=== PATIENT | male | born 1960 | race Two or more races ===

== ENCOUNTER 2025-01-31 19:22 | Inpatient (IN) | payer BC, OTHER ==
[~2025-01-31] VITALS: Ht 167.6 cm; Wt 91.4 kg
[2025-01-31 20:17] LABS: Hematocrit 38.9 % (41.0-53.0); Hemoglobin 13.5 g/dL (13.5-17.5); Mean Corpuscular Hemoglobin 31.0 pg (28.0-32.0); Mean Corpuscular Volume 89.1 fL (80.0-100.0); Nucleated Red Blood Cells % 0.1 %
--- NOTE | 2025-01-31 20:28 | ED.PDOC ---
GI ASSESSMENT HPI Comments 64-year-old male who came to ER for GI bleed. Patient transferred here from [facility], coming in for rectal bleeding, dark red blood 9 times since this morning. Noted lower abdominal pain. Denies any nausea or vomiting. Denies any history of abdominal surgeries. Patient diagnosed with bleeding diverticulitis, and was transferred here for further evaluation and management Chief Complaint: GI Bleed Time Seen by MD: 20:27 Reviewed Notes: Nurses Notes Allergies: Coded Allergies: Penicillins (Verified Allergy, Unknown, 01/31/25) Information Source: Patient Mode of Arrival: EMS Timing: Hours Duration: Intermittent Prehospital treatment: None Quality: Aching Vomitus: None Stool: Blood Streaked Severity: Moderate Recent: None Recent Hx of: None Pain Location: Suprapubic Associated sign and symptoms: Hematochezia, Abdominal Pain Past Medical History PAST MEDICAL HISTORY: Denies Surgical History (Other): Nasal Surgery Family History Family History: Reviewed,noncontributory to illness Social History Smoker: Non-Smoker Alcohol: Denies ETOH Use Drugs: Denies Drug Use Lives In: Home Constitutional: denies: chills, diaphoresis, fatigue, fever, malaise, sweats, weakness, others EENTM: denies: blurred vision, double vision, ear bleeding, ear discharge, ear drainage, ear pain, ear ringing, eye pain, eye redness, hearing loss, mouth pain, mouth swelling, nasal discharge, nose bleeding, nose congestion, nose pain, photophobia, tearing, throat pain, throat swelling, voice changes, others Respiratory: denies: cough, hemoptysis, orthopnea, SOB at rest, shortness of breath, SOB with excertion, stridor, wheezing, others Cardiovascular: denies: chest pain, dizzy spells, diaphoresis, Dyspnea on exertion, edema, irregular heart beat, left arm pain, lightheadedness, palpitations, PND, syncope, others Gastrointestinal: reports: abdominal pain, blood streaked bowels, rectal bl eeding; denies: abdomen distended, constipated, diarrhea, dysphagia, difficulty swallowing, hematemesis, melena, nausea, poor appetite, poor fluid intake, rectal pain, vomiting, others Genitourinary: denies: burning, dysuria, flank pain, frequency, hematuria, incontinence, penile discharge, penile sore, pain, testicle pain, testicle swelling, urgency, others Neurological: denies: dizziness, fainting, headache, left sided numbness, left sided weakness, numbness, paresthesia, pre-existing deficit, right sided numbness, right sided weakness, seizure, speech problems, tingling, tremors, weakness, others Musculoskeletal: denies: back pain, gout, joint pain, joint swelling, muscle pain, muscle stiffness, neck pain, others Integumetry: denies: bruises, change in color, change in hair/nails, dryness, laceration, lesions, lumps, rash, wounds, others Allergic/Immunocompromised: denies: Difficulty Healing, Frequent Infections, Hives, Itching, others Hematologic/Lymphatic: denies: anemia, blood clots, easy bleeding, easy bruising, swollen glands, others Endocrine: denies: excessive hunger, excessive sweating, excessive thirst, excessive urination, flushing, intolerance to cold, intolerance to heat, unexplained weight gain, unexplained weight loss, others Psychiatric: denies: anxiety, bipolar disorder, depression, hopeless, panic disorder, schizophrenia, sleepless, suicidal, others Physical Exam General Appearance: No Apparent Distress, Normal HEENT: Normal ENT Inspection, Pharynx Normal, TMs Normal Neck: Full Range of Motion, Non-Tender, Normal, Normal Inspection Respiratory: Chest Non-Tender, Lungs Clear, No Accessory Muscle Use, No Respiratory Distress, Normal Breath Sounds Cardiovascular: No Edema, No JVD, No Murmur, No Gallop, Normal Peripheral Pulses, Regular Rate/Rhythm Breast Exam: Deferred Gastrointestinal: No Organomegaly, Non Tender, No Pulsatile Mass, Normal Bowel Sounds, Soft Genitalia: Deferred Pelvic: Deferred Rectal: Deferred Extremities: No calf tenderness, Normal capillary refill, Normal inspection, Normal range of motion, Non-tender, No pedal edema Musculoskeletal : Apperance: Normal Neurologic: Alert, temperer II-XII nml as Tested, No Motor Deficits, Normal Affect, Normal Mood, No Sensory Deficits Cerebellar Function: Normal Reflexes: Normal Skin: Dry, Normal Color, Warm Lymphatic: No Adenopathy Was a procedure done? Was a procedure done?: No GI differential Dx Differential Diagnosis: Diverticular disease, Gastritis/PUD, Gastroenteritis, GI hemorrhage, Inflammatory BD, Ischemic Bowel, Anemia X-Ray, Labs, Meds, VS Vital Signs Date Time Temp Pulse Resp B/P (MAP) Pulse Ox O2 Delivery O2 Flow Rate FiO2 01/31/25 21:05 Room Air* 0 21 01/31/25 21:05 98.2 69 19 107/76 (86) 95 98.2 01/31/25 19:22 98.7 82 18 125/80 96 98.7 Lab Test 01/31/25 20:06 Range/Units White Blood Count 6.4 4.4-10.8 10^3/uL Red Blood Count 4.36 L 4.5-5.90 10^6/uL Hemoglobin 13.5 13.5-17.5 g/dL Hematocrit 38.9 L 41.0-53.0 % Mean Corpuscular Volume 89.1 80.0-100.0 fL Mean Corpuscular Hemoglobin 31.0 28.0-32.0 pg Mean Corpuscular Hemoglobin Concent 34.8 32.0-36.0 g/dL Red Cell Distribution Width 12.7 11.8-14.3 % Platelet Count 271 140-450 10^3/uL Mean Platelet Volume 6.8 L 6.9-10.8 fL Neutrophils (%) (Auto) 72.0 37.0-80.0 % Lymphocytes (%) (Auto) 16.9 10.0-50.0 % Monocytes (%) (Auto) 7.1 0.0-12.0 % Eosinophils (%) (Auto) 3.2 0.0-7.0 % Basophils (%) (Auto) 0.8 0.0-2.0 % Neutrophils # (Auto) 4.6 1.6-8.6 10 ^3/uL Lymphocytes # (Auto) 1.1 0.4-5.4 10 ^3/uL Monocytes # (Auto) 0.5 0-1.3 10 ^3/uL Eosinophils # (Auto) 0.2 0-0.8 10 ^3/uL Basophils # (Auto) 0 0-0.2 10 ^3/uL Nucleated Red Blood Cells 0.1 % Prothrombin Time 10.8 9.3-11.8 sec Prothrombin Time INR 1.02 0.9-1.15 Activated Partial Thromboplast Time 25.9 24.5-34.5 SEC Sodium Level 140 136-145 mmol/L Potassium Level 4.2 3.5-5.1 mmol/L Chloride Level 106 98-107 mmol/L Carbon Dioxide Level 26 20-31 mmol/L Anion Gap 8 5-15 Blood Urea Nitrogen 14 9-23 mg/dL Creatinine 0.87 0.700-1.30 mg/dL Glomerular Filtration Rate Calc 98 >90 mL/min BUN/Creatinine Ratio 16.1 10.0-20.0 Serum Glucose 92 74-106 mg/dL Calcium Level 9.2 8.7-10.4 mg/dL Total Bilirubin 0.9 0.2-1.0 mg/dL Aspartate Amino Transferase (AST) 27 13-40 U/L Alanine Aminotransferase (ALT) 35 7-40 U/L Alkaline Phosphatase 70 46-116 U/L Total Protein 6.6 5.7-8.2 g/dL Albumin 4.1 3.2-4.8 g/dL Lipase 28 12-53 U/L Current Medications Medications (Trade) Dose Ordered Sig/Gadiel Route Start Time Stop Time Status Last Admin Sodium Chloride 1,000 ml @ 1,000 mls/hr Q1H ONCE IV 01/31/25 19:45 01/31/25 20:44 DC 01/31/25 22:00 Time of 1ST Reevaluation: 20:23 Reevaluation 1ST: Unchanged Patient Education/Counseling: Diagnosis, Treatment Family Education/Counseling: No Family Present SEPSIS Sepsis Screen Date sepsis recognized/suspect: Jan 31, 2025 Time Sepsis recognized/suspect: 1921 Recent Procedure: No On Antibiotic Therapy: No Respiratory Rate >20: No Heart Rate >90: No Temp<36 C (96.8 F) or >38.3 C: No SBP <90 or MAP <65 mmHG: No New Acute Mental Status Change: No Is the patient on CPAP, BIPAP,: No Physician Orders Heplock Iv (01/31/25 19:45) Ct Ab Pel Wo Con-No Oral Or Iv (01/31/25 19:47) Vital Signs Date Time Temp Pulse Resp B/P (MAP) Pulse Ox O2 Delivery O2 Flow Rate FiO2 01/31/25 21:05 Room Air* 0 21 01/31/25 21:05 98.2 69 19 107/76 (86) 95 98.2 01/31/25 19:22 98.7 82 18 125/80 96 98.7 Laboratory Tests Test 01/31/25 20:06 White Blood Count 6.4 10^3/uL (4.4-10.8) Medications Medications Dose Ordered Sig/Gadiel Route Start Time Stop Time Status Last Admin Dose Admin Sodium Chloride 1,000 ml @ 1,000 mls/hr Q1H ONCE IV 01/31/25 19:45 01/31/25 20:44 DC 01/31/25 22:00 Departure 1 Departure Time of Disposition: 22:57 Impression: Primary Impression: Lower GI bleed Disposition: ADMITTED INPATIENT Admit to: Med Surg Condition: Guarded Discharged With: Self Comments 64-year-old male transferred from [facility] for lower GI bleed. Patient has had some steady bleeding for the last couple of days. His initial H and H look okay. He does have a history of diverticulosis and this may be the cause of the bleeding. CT scan and lab work are negative for diverticulitis. Patient will need admission for lower GI bleed and supportive care and further workup and possible GI consultation. Critical Care Note Critical Care Time?: Yes (35 min-critical care time only) Critical care comment: Total critical care time: Approximately 36 minutes Due to a high probability of clinically significant, life threatening deterior ation, the patient required my highest level of preparedness to intervene emergently and I personally spent this critical care time directly and personally managing the patient. This critical care time included obtaining a history; examining the patient; pulse oximetry; ordering and review of studies; arranging urgent treatment with development of a management plan; evaluation of patient's response to treatment; frequent reassessment; and, discussions with other providers. This critical care time was performed to assess and manage the high probability of imminent, life-threatening deterioration that could result in multi-organ failure. It was exclusive of separately billable procedures and treating other patients. Stability Stability form required: No Heart Score Heart Score: Heart Score Response (Comments) Value History N/A 0 EKG N/A 0 Age N/A 0 Risk Factors N/A 0 Troponin N/A 0 Total 0 I personally scribed for KATH SHULTZ MD ([email or web address]) on 01/31/25 at 20:28. Electronically submitted by Len Sparrow ([email or web address]). KATH SHULTZ MD Jan 31, 2025 20:28
[2025-01-31 20:32] LABS: INR 1.02 (0.9-1.15); Partial Thromboplastin Time 25.9 SEC (24.5-34.5); Prothrombin Time 10.8 sec (9.3-11.8)
[2025-01-31 20:35] LABS: Alanine Aminotransferase 35 U/L (7-40); Albumin 4.1 g/dL (3.2-4.8); Alkaline Phosphatase 70 U/L (46-116); Anion Gap 8 (5-15); BUN/Creatinine Ratio 16.1 (10.0-20.0); Blood Urea Nitrogen 14 mg/dL (9-23); Calcium 9.2 mg/dL (8.7-10.4); Carbon Dioxide 26 mmol/L (20-31); Chloride 106 mmol/L (98-107); Glucose 92 mg/dL (74-106); Lipase 28 U/L (12-53); Potassium 4.2 mmol/L (3.5-5.1); Sodium 140 mmol/L (136-145); Total Protein 6.6 g/dL (5.7-8.2)
[2025-01-31 20:36] LABS: Bilirubin, Total 0.9 mg/dL (0.2-1.0)
[2025-01-31] MEDS: SODIUM CHLORIDE 0.9% 1,000 ML IV ONE (22:00)
--- NOTE | 2025-01-31 22:46 | DVH ---
Exam: CT CT AB PEL WO CON-NO ORAL OR IV History: abd pain, GI bleed Comparison Study: None TECHNIQUE: Multidetector CT of the abdomen was performed from lung bases to pubic symphysis. Imaging was performed without IV contrast. Axial, coronal and sagittal multiplanar reformats were obtained fr om the axial data set by the technologist. Radiation Dose Information: CT Dose: CTDI volume is 16.9 mGy. Dose-length product is 1025.6 mGy*cm FINDINGS: Evaluation of solid organs is limited due to lack of intravenous contrast use. Findings: Lung Bases: No acute or significant lung base finding. Normal heart size. No pleural or pericardial effusion. Liver: The liver is normal in size. No focal lesions. Gallbladder and Biliary Tree: Unremarkable Spleen: Unremarkable Pancreas: The pancreas is grossly normal in appearance. Adrenal Glands: Unremarkable Kidneys: Bilateral renal cysts Bladder: Contrast filled bladder Bowel: The stomach is grossly normal in appearance. Small bowel and colon are normal in caliber and d istribution. The appendix is not visualized; however, no secondary findings of acute appendicitis id entified. Ascites: Absent Lymphadenopathy: No mesenteric, retroperitoneal or periportal lymphadenopathy. Abdominal Wall and Mesentery: Unremarkable. Vasculature: The visualized abdominal aorta is normal in size and caliber. Evaluation of abdominal a nd pelvic vessels is limited due to lack of intravenous contrast. Pelvic Organs: Prostate measures 5.4 by 5.2 cm and is partially calcified Musculoskeletal: No aggressive focal bony lesions, acute fractures or dislocation. Soft tissues: Unremarkable IMPRESSION: 1. Bilateral renal cysts 2. Contrast filled bladder Radiation optimization: All CT scans at this facility use at least one of these dose optimization jamel hniques: automated exposure control mA and/or kV adjustment per patient size (includes targeted exam s where dose is matched to clinical indication) or iterative reconstruction.
[2025-02-01] VITALS (7 sets, daily range): BP systolic 104–116; BP diastolic 60–84; PULSE 61–80; RESP 16–18; TEMP 97.4–98; O2SAT 95–100
[2025-02-01] MEDS: ACETAMINOPHEN 325 MG TAB PO ONE (01:32)
[2025-02-01] MEDS ORDERED: DOCUSATE SOD 100 MG CAP PO PRN (02:45)
[2025-02-01] MEDS ORDERED: MORPHINE SULFATE INJ 2 MG/ml SYRG IV PRN (02:45)
[2025-02-01] MEDS ORDERED: NITROGLYCERIN 0.4 MG SL TAB SL PRN (02:45)
[2025-02-01] MEDS ORDERED: HYDROcodone-ACET 5/325MG TAB PO PRN (02:45)
[2025-02-01] MEDS ORDERED: ONDANSETRON HCL 4 MG/2 ML VIAL IV PRN (02:45)
--- NOTE | 2025-02-01 02:51 | DVHHP2 ---
History of Present Illness Reason for Visit: Lower GI bleed History of Present Illness The patient is a 64-year-old male who denies past medical history presented to [facility] ED for evaluation of GI bleed. The patient was transferred here from [facility] for rectal bleeding, dark red blood since this morning, associated with lower abdominal pain. Patient diagnosed with bleeding diverticulitis. Patient was seen and evaluated in the ED, laboratory data shows WBC 6.4, hemoglobin 13.5, hematocrit 38.9, platelets 271, sodium 140, potassium 4.2, BUN 14, creatinine 0.87, glucose 92, calcium 9.2, lipase 28, blood pressure 109/78, heart rate 72, temperature 98.2 F, O2 saturation 95% on room air. Abdomen/pelvis CT revealing bilateral renal cysts, contrast filled bladder. Please see medication orders section in the computer. On my assessment, patient denied chest pain, no headache, no dizziness, no shortness of breaths, no diarrhea, no nausea, no vomiting, no fever, no chills. Patient was admitted for further evaluation and medical management. Past Medical History Denies past medical history Past Surgical History Nasal Surgery Family History Reviewed, noncontributory to the management of this case. Past Social History The patient lives at home, denies smoking, alcohol or illicit drugs abuse. Review of Systems Constitutional: Yes: Weakness; No: Fever, Chills, Sweats, Malaise, Other Eyes: No: Pain, Vision change, Conjunctivae inflammation, Eyelid inflammation, Other, Redness ENT: No: Ear pain, Ear discharge, Nose pain, Nose discharge, Nose congestion, Mouth pain, Mouth swelling, Throat pain, Throat swelling, Other Respiratory: No: Cough, Dry, Shortness of breath, SOB with excertion, Wheezing, Hemoptysis, Pleuritic Pain, Sputum, Wheezing, Other Cardiovascular: No: Chest Pain, Palpitations, Orthopnea, Paroxysmal Noc. Dyspnea, Edema, Lt Headedness, Other Gastrointestinal: Abdominal Pain, Other (Blood streak bowel, rectal bleeding.); No: Nausea, Vomiting, Diarrhea, Constipation, Melena, Hematochezia Genitourinary: No Dysuria, No Frequency, No Incontinence, No Hematuria, No Retention, No Other Musculoskeletal: No: other, neck pain, shoulder pain, arm pain, back pain, hand pain, leg pain, foot pain Skin: No: Rash, Lesions, Jaundice, Bruising, Other Neurological: No: Weakness, Numbness, Incoordination, Change in speech, Confusion, Seizures, Other Allergies: Coded Allergies: Penicillins (Verified Allergy, Unknown, 01/31/25) Exam Vital Signs Vital Signs Date Time Temp Pulse Resp B/P (MAP) Pulse Ox O2 Delivery O2 Flow Rate FiO2 02/01/25 02:00 98.6 68 15 126/75 (92) 97 98.6 01/31/25 21:05 Room Air* 0 21 General Appearance: Alert, Oriented X3, Cooperative, No acute distress HEENT: Atraumatic, PERRLA, EOMI, Mucous membr. moist/pink Respiratory: Clear to auscultation, Normal air movement Cardiovascular: Regular rate, Normal S1, Normal S2, No murmurs Abdominal: Normal bowel sounds, Soft, No hepatospenomegaly, No masses, Other (Reports tenderness) Extremities: No clubbing, No cyanosis, No edema, Normal pulses, No tenderness/swelling Skin: No rashes, No significant lesion Neuro: Normal speech, Normal tone, Sensation intact, Cranial nerves 3-12 NL, Reflexes 2+, Other (Generalized weakness) Psych/Mental Status: Mental status NL, Mood NL Labs/Xrays Labs Test 01/31/25 20:06 Range/Units White Blood Count 6.4 4.4-10.8 10^3/uL Red Blood Count 4.36 L 4.5-5.90 10^6/uL Hemoglobin 13.5 13.5-17.5 g/dL Hematocrit 38.9 L 41.0-53.0 % Mean Corpuscular Volume 89.1 80.0-100.0 fL Mean Corpuscular Hemoglobin 31.0 28.0-32.0 pg Mean Corpuscular Hemoglobin Concent 34.8 32.0-36.0 g/dL Red Cell Distribution Width 12.7 11.8-14.3 % Platelet Count 271 140-450 10^3/uL Mean Platelet Volume 6.8 L 6.9-10.8 fL Neutrophils (%) (Auto) 72.0 37.0-80.0 % Lymphocytes (%) (Auto) 16.9 10.0-50.0 % Monocytes (%) (Auto) 7.1 0.0-12.0 % Eosinophils (%) (Auto) 3.2 0.0-7.0 % Basophils (%) (Auto) 0.8 0.0-2.0 % Neutrophils # (Auto) 4.6 1.6-8.6 10 ^3/uL Lymphocytes # (Auto) 1.1 0.4-5.4 10 ^3/uL Monocytes # (Auto) 0.5 0-1.3 10 ^3/uL Eosinophils # (Auto) 0.2 0-0.8 10 ^3/uL Basophils # (Auto) 0 0-0.2 10 ^3/uL Nucleated Red Blood Cells 0.1 % Prothrombin Time 10.8 9.3-11.8 sec Prothrombin Time INR 1.02 0.9-1.15 Activated Partial Thromboplast Time 25.9 24.5-34.5 SEC Sodium Level 140 136-145 mmol/L Potassium Level 4.2 3.5-5.1 mmol/L Chloride Level 106 98-107 mmol/L Carbon Dioxide Level 26 20-31 mmol/L Anion Gap 8 5-15 Blood Urea Nitrogen 14 9-23 mg/dL Creatinine 0.87 0.700-1.30 mg/dL Glomerular Filtration Rate Calc 98 >90 mL/min BUN/Creatinine Ratio 16.1 10.0-20.0 Serum Glucose 92 74-106 mg/dL Calcium Level 9.2 8.7-10.4 mg/dL Total Bilirubin 0.9 0.2-1.0 mg/dL Aspartate Amino Transferase (AST) 27 13-40 U/L Alanine Aminotransferase (ALT) 35 7-40 U/L Alkaline Phosphatase 70 46-116 U/L Total Protein 6.6 5.7-8.2 g/dL Albumin 4.1 3.2-4.8 g/dL Lipase 28 12-53 U/L PATIENT: ANGELA VALADEZ ACCT: [id number] UNIT: [id number] : 1960 LOC: ER ROOM / BED: / AGE / SEX: 64 / M ADM STATUS: REG ER SERVICE 46 ORDERING PHYSICIAN: KATH SHULTZ MD PROCEDURE(s): ABPL - CT AB PEL WO CON-NO ORAL OR IV REASON: abd pain, GI bleed ORDER NUMBER(s): [id number], ACCESSION NUMBER(s): [id number] Exam: CT CT AB PEL WO CON-NO ORAL OR IV History: abd pain, GI bleed Comparison Study: None TECHNIQUE: Multidetector CT of the abdomen was performed from lung bases to pubic symphysis. Imaging was performed without IV contrast. Axial, coronal and sagittal multiplanar reformats were obtained from the axial data set by the technologist. Radiation Dose Information: CT Dose: CTDI volume is 16.9 mGy. Dose-length product is 1025.6 mGy*cm FINDINGS: Evaluation of solid organs is limited due to lack of intravenous contrast use. Findings: Lung Bases: No acute or significant lung base finding. Normal heart size. No pleural or pericardial effusion. Liver: The liver is normal in size. No focal lesions. Gallbladder and Biliary Tree: Unremarkable Spleen: Unremarkable Pancreas: The pancreas is grossly normal in appearance. Adrenal Glands: Unremarkable Kidneys: Bilateral renal cysts Bladder: Contrast filled bladder Bowel: The stomach is grossly normal in appearance. Small bowel and colon are normal in caliber and distribution. The appendix is not visualized; however, no secondary findings of acute appendicitis identified. Ascites: Absent Lymphadenopathy: No mesenteric, retroperitoneal or periportal lymphadenopathy. Abdominal Wall and Mesentery: Unremarkable. Vasculature: The visualized abdominal aorta is normal in size and caliber. Evaluation of abdominal and pelvic vessels is limited due to lack of intravenous contrast. Pelvic Organs: Prostate measures 5.4 by 5.2 cm and is partially calcified Musculoskeletal: No aggressive focal bony lesions, acute fractures or di slocation. Soft tissues: Unremarkable IMPRESSION: 1. Bilateral renal cysts 2. Contrast filled bladder SEPSIS Sepsis Screen Date sepsis recognized/suspect: Jan 31, 2025 Time Sepsis recognized/suspect: 2104 Recent Procedure: Yes (DEVIATED SEPTUM Sx X2 WEEKS AGO) On Antibiotic Therapy: No Respiratory Rate >20: No Heart Rate >90: No Temp<36 C (96.8 F) or >38.3 C: No SBP <90 or MAP <65 mmHG: No New Acute Mental Status Change: No Is the patient on CPAP, BIPAP,: No Physician Orders Heplock Iv (01/31/25 19:45) Ct Ab Pel Wo Con-No Oral Or Iv (01/31/25 19:47) Complete Blood Count (02/01/25 04:00) Comprehensive Metabolic Panel (02/01/25 04:00) * [facility] Revenue Audit Clerk (02/01/25 02:36) Admit (02/01/25 02:36) Allergies (02/01/25 02:36) Code Status (02/01/25 02:36) Sodium Chloride Lock (Saline Lock Ns) (02/01/25 06:00) Oxygen Per Hour (02/01/25 02:36) Hydrocodone-Acet 5/325mg Tab ([place] (02/01/25 02:45) Ondansetron Hcl (Zofran) (02/01/25 02:45) Docusate Sodium Capsule (Colace Capsule) (02/01/25 02:45) Complete Blood Count (02/02/25 04:00) Comprehensive Metabolic Panel (02/02/25 04:00) Cardiac Diet-2gna,Lofat,Lochol (02/01/25 Breakfast) Condition: Serious (02/01/25 02:36) Acetaminophen Tablet (Tylenol Tablet) (02/01/25 02:45) Bedrest With Bathroom Privileg (02/01/25 02:36) Sequential Compression Device (02/01/25 ) Nitroglycerin Sublingual (Ntrostat Subli (02/01/25 02:45) Morphine Sulfate Injection (02/01/25 02:45) Notify Md Of Changes From Base (02/01/25 02:36) Emergency Dysrhythmia Protocol (02/01/25 02:36) Oxygen By Nasal Cannula (02/01/25 02:36) Vital Signs Date Time Temp Pulse Resp B/P (MAP) Pulse Ox O2 Delivery O2 Flow Rate FiO2 02/01/25 02:00 98.6 68 15 126/75 (92) 97 98.6 02/01/25 00:00 75 18 109/78 (88) 95 01/31/25 22:00 72 17 111/76 (88) 97 01/31/25 21:05 Room Air* 0 21 01/31/25 21:05 98.2 69 19 107/76 (86) 95 98.2 01/31/25 19:22 98.7 82 18 125/80 96 98.7 Laboratory Tests Test 01/31/25 20:06 White Blood Count 6.4 10^3/uL (4.4-10.8) Medications Medications Dose Ordered Sig/Gadiel Route Start Time Stop Time Status Last Admin Dose Admin Acetaminophen 1,000 mg ONCE ONCE PO 02/01/25 01:30 02/01/25 01:31 DC 02/01/25 01:32 1,000 MG Sodium Chloride 1,000 ml @ 1,000 mls/hr Q1H ONCE IV 01/31/25 19:45 01/31/25 20:44 DC 01/31/25 22:00 1,000 MLS/HR Assessment/Plan Assessment/Plan Lower GI bleed Generalized weakness Plan 1. Admit to med surge unit 2. Breathing treatment 3. Pain control management 4. Management of fluids and electrolytes 5. Consultation for GI 6. Diagnostic tests abdomen/pelvis CT 7. DVT prophylaxis on SCDs 8. Repeat labs CBC, CMP in a.m. 9. Continue with current medical management 10. Treatment plan discussed with patient and RN. Patient verbalized understanding. Plan discussed with: Patient, Other (RN) My Orders Orders - JUAN JOSÉ CASTILLO DNP Procedure Category Date Status Time Complete Blood Count LAB 02/01/25 Verified 04:00 Comprehensive LAB 02/01/25 Verified Metabolic Panel 04:00 * Gi [facility] Revenue Audit Clerk CONS 02/01/25 Verified 02:36 Admit ADMIT 02/01/25 Verified 02:36 Allergies GEO 02/01/25 Verified 02:36 Code Status CODE 02/01/25 Verified 02:36 Sodium Chloride Lock PHA 02/01/25 Verified (Saline Lock Ns) 06:00 Oxygen Per Hour RT 02/01/25 Verified 02:36 Hydrocodone-Acet PHA 02/01/25 Verified 5/325mg Tab ([place] 02:45 Ondansetron Hcl PHA 02/01/25 Verified (Zofran) 02:45 Docusate Sodium PHA 02/01/25 Verified Capsule (Colace 02:45 Complete Blood Count LAB 02/02/25 Verified 04:00 Comprehensive LAB 02/02/25 Verified Metabolic Panel 04:00 Cardiac DIET 02/01/25 Verified Diet-2gna,Lofat,Lochol Breakfast Condition: Serious GEO 02/01/25 Verified 02:36 Acetaminophen Tablet PHA 02/01/25 Verified (Tylenol Tablet) 02:45 Bedrest With Bathroom GEO 02/01/25 Verified Privileg 02:36 Sequential GEO 02/01/25 Verified Compression Device Nitroglycerin PHA 02/01/25 Verified Sublingual (Ntrostat 02:45 Morphine Sulfate PHA 02/01/25 Verified Injection 02:45 Notify Md Of Changes GEO 02/01/25 Verified From Base 02:36 Emergency Dysrhythmia GEO 02/01/25 Verified Protocol 02:36 Oxygen By Nasal RT 02/01/25 Verified Cannula 02:36 Problem List: (1) Lower GI bleed (2) Generalized weakness Date of Service: Feb 01, 2025 Billing Provider: JUAN JOSÉ CASTILLO DNP Common Visit Codes: [id number] INP/OBS CARE (HIGH) JUAN JOSÉ CASTILLO DNP Feb 01, 2025 02:51
[2025-02-01 04:26] LABS: Hematocrit 33.6 % (41.0-53.0); Hemoglobin 11.9 g/dL (13.5-17.5); Mean Corpuscular Hemoglobin 31.6 pg (28.0-32.0); Mean Corpuscular Volume 88.9 fL (80.0-100.0); Nucleated Red Blood Cells % 0.1 %
[2025-02-01 04:47] LABS: Alanine Aminotransferase 28 U/L (7-40); Albumin 3.6 g/dL (3.2-4.8); Alkaline Phosphatase 62 U/L (46-116); Anion Gap 6 (5-15); BUN/Creatinine Ratio 15.6 (10.0-20.0); Blood Urea Nitrogen 12 mg/dL (9-23); Carbon Dioxide 27 mmol/L (20-31); Glucose 77 mg/dL (74-106); Potassium 4.1 mmol/L (3.5-5.1); Sodium 141 mmol/L (136-145)
[2025-02-01 04:48] LABS: Bilirubin, Total 0.9 mg/dL (0.2-1.0)
[2025-02-01 04:50] LABS: Calcium 8.6 mg/dL (8.7-10.4); Chloride 108 mmol/L (98-107); Total Protein 5.6 g/dL (5.7-8.2)
[2025-02-01] MEDS: SODIUM CHLOR 0.9% PF (SALINE LOCK) 10ML VIAL/SYR IV SCH (06:11)
[2025-02-01] MEDS: SODIUM CHLORIDE 0.9% 1,000 ML IV ONE (09:00)
[2025-02-01] MEDS ORDERED: TADA5TAB11 PO (09:30)
[2025-02-01] MEDS ORDERED: AMLO1TAB22 PO (09:30)
[2025-02-01] MEDS ORDERED: ASPI-498 OR (09:30)
[2025-02-01] MEDS ORDERED: ATOR-507 PO (09:30)
[2025-02-01] MEDS: PANTOPRAZOLE 40 MG/10 ML VIAL INJ IV SCH (11:22)
[2025-02-01] MEDS: SODIUM CHLORIDE 0.9% 1,000 ML IV SCH (11:24)
[2025-02-01 14:00] LABS: Urine Protein, UAD Negative (Negative)
[2025-02-01 14:14] LABS: Amphetamine Screen, Urine Neg (NEGATIVE); Barbiturate Scree,Urine Neg (NEGATIVE); Benzodiazephine Screen, Urine Neg (NEGATIVE); Cannabinoid Screen, Urine Neg (NEGATIVE); Cocaine Screen, Urine Neg (NEGATIVE); Opiate Scree,Urine Neg (NEGATIVE); Phencyclidine Screen, Urine Neg (NEGATIVE)
--- NOTE | 2025-02-01 15:35 | DVHPNRES ---
Progress Note Date Seen: Feb 01, 2025 Resident Creating Document: JALEN OTERO RESIDENT Medical Necessity Reason Pt with a Central, PICC or Fol: No Subjective Review of Systems Patient is 64 years old male with a past medical history hypertension, CAD,hemorrhoids came with a complaint of per rectal bleeding. As per patient he started having per rectal bleeding since yesterday morning and had bleeding per rectum every time he had bowel movement. Patient reported he had almost 10 bowel movement in the last 24 hours that was bloody. Patient complained of mild abdominal pain, 5 out 2 6, crampy in nature, intermittent. Patient denied any nausea, vomiting, fever, chest pain no shortness of breath, acute joint redness or swelling. Initial lab workup revealed lipase with a normal limit, AST/ALT/alkaline phosphatase within normal limit. INR 1.02. CT abdomen pelvis- bilateral renal cyst. Patient went to [facility] before coming to [facility]. PMH-hypertension PSH- nasal surgery Allergy- penicillin Family history-mom had carcinoma of the breast, dad had heart disease. Personal History/ Social History- Cardiovascular- deny acute chest pain or shortness of breath or cough or palpitation Respiratory denies cough or short of breath or wheezing Gastrointestinal- denies any rectal bleeding, nausea or vomiting Musculoskeletal-denies acute joint swelling or tenderness or redness Neurological- denies acute dysarthria, dysphagia, change in vision Psychiatry- denies depression or SI or HI Skin- denies acute rash or purpura Patient is seen today at bedside, lebs than chart reviewed. Patient reported ongoing bleeding per rectum but less than before. CT abdomen pelvis-bilateral renal cyst. Pending gastroenterology consult. Patient NPO. Objective vital signs Vital Sign Date Time Temp Pulse Resp B/P (MAP) Pulse Ox O2 Delivery O2 Flow Rate FiO2 02/01/25 13:55 98.0 68 18 104/60 (75) 95 98.0 02/01/25 07:25 Room Air* 0 21 Total Intake and Output 01/31/25 01/31/25 02/01/25 15:00 23:00 07:00 Intake Total 1000 ml Balance 1000 ml medications Current Medications Medications Dose Ordered Sig/Gadiel Route Start Time Stop Time Status Last Admin Dose Admin Sodium Chloride 10 ml Q8HR IV 02/01/25 06:00 02/01/25 13:13 10 ML Acetaminophen/ Hydrocodone Bitart 1 tab Q4HP PRN PO 02/01/25 02:45 Ondansetron HCl 4 mg Q4HP PRN IV 02/01/25 02:45 Docusate Sodium 100 mg BIDPRN PRN PO 02/01/25 02:45 Acetaminophen 650 mg Q6HP PRN PO 02/01/25 02:45 Nitroglycerin 0.4 mg Q5MINP PRN SL 02/01/25 02:45 Morphine Sulfate 2 mg Q30M PRN IV 02/01/25 02:45 Sodium Chloride 1,000 ml @ 125 mls/hr Q8H IV 02/01/25 08:45 02/01/25 11:24 125 MLS/HR Pantoprazole Sodium 40 mg DAILY IV 02/02/25 10:00 Examination General examination- awake, alert, oriented HEENT- PEERLA, no acute nasal discharge Cardiovascular- S1-S2 audible, rate and rhythm regular, no murmur Respiratory- CTAB, no wheeze or rhonchi Gastrointestinal-nontender, bowel sound+. Nondistended Musculoskeletal-no acute joint swelling or tenderness or redness Lower extremity- no leg edema Digital rectal examination-in presence of fabricator artificial breast SHERRI Colung[place] digital rectal examination was done, sternal hemorrhoids, blood in the rectal vault. Neurological- cranial nerves intact, no acute dysarthria or dysphagia Psychiatry- denies depression or SI or HI Skin- no acute rash or purpura laboratory and microbiology Laboratory Tests 02/01/25 03:57 Test 02/01/25 03:57 Range/Units Serum Glucose 77 74-106 mg/dL Problem List/Assessment/Plan Problem List/Assessment/Plan Assessment and plan #Bleeding per rectum rule out diverticulitis/angiodysplasia/carcinoma of the colon/rectum # bloody diarrhea -CT abdominal pelvis-bilateral renal cyst -NPO -pending gastroenterology consult -continue pantoprazole IV as prescribed # hypertension -hydralazine q.6h PRN # hyperlipidemia -atorvastatin as prescribed Goals of care, Code status full code; discussed with >15 minutes PUD prophylaxis: Pantoprazole DVT prophylaxis: SCD Plan discussed with Dr. Duncan , nursing staff, Total time spent on patient evaluation, chart review, assessment and plan, discussion discussion >35 minutes Plan discussed with: Patient, Other (RN) My Orders My Orders Orders - JALEN OTERO RESIDENT Procedure Category Date Status Time Sodium Chloride 0.9% PHA 02/01/25 In Process 08:45 * Gi [facility] Technical Program Manager CONS 02/01/25 Transmitted 10:00 Clear Liq Diet DIET 02/01/25 Transmitted Lunch Pantoprazole PHA 02/02/25 In Process (Protonix) 10:00 Date of Service: Feb 01, 2025 Billing Provider: TALITA EUCEDA MD Common Visit Codes: [id number] INP/OBS CARE(HIGH) JALEN OTERO RESIDENT Feb 01, 2025 15:35 LEONOR LOVE RESIDENT Feb 02, 2025 16:21 TALITA EUCEDA MD Feb 04, 2025 01:33
[2025-02-01] MEDS ORDERED: hydrALAZINE HCL 20 MG/ML VL IV PRN (15:45)
[2025-02-01 16:16] LABS: Hematocrit 31.3 % (41.0-53.0); Hemoglobin 10.9 g/dL (13.5-17.5); Mean Corpuscular Hemoglobin 31.1 pg (28.0-32.0); Mean Corpuscular Volume 89.5 fL (80.0-100.0); Nucleated Red Blood Cells % 0.0 %
--- NOTE | 2025-02-01 18:35 | DVHINCON2 ---
Date of service: Feb 01, 2025 Referring Physician SHANNA Reason for Consultation GI BLEED History of Present Illness The patient is a 64-year-old male with a past medical history of hemorrhoidal bleed, last colonoscopy four years ago, admitted with GI bleeding. Patient states that he had abdominal pain yesterday. He has no pain today. He denies any current fevers or chills, chest pain or shortness of breath. Patient is on antibiotics. He denies any nausea vomiting, melena. Patient has been having bright red blood per rectum. Patient is currently NPO. He denies any med history other than GI bleed. Past Medical History Denies Past Surgical History Denies Family History: FHx: heart disease G8 FATHER, Onset:60 years & older FHx: lung cancer G8 MOTHER, Onset:60 years & older Family History No gastrointestinal diseases or malignancies Social History Significant tobacco, alcohol or recreational drug use Allergies: Coded Allergies: Penicillins (Verified Allergy, Unknown, 01/31/25) Home Meds Reported Medications Aspirin (ASPIRIN 81) 81 Mg Tab, 81 MG OR DAILY, TAB 02/01/25 Amlodipine Besylate (Amlodipine Besylate) 5 Mg Tab, 10 MG PO DAILY, TAB 02/01/25 Atorvastatin Calcium (Lipitor) 40 Mg Tab, 40 MG PO DAILY, TAB 02/01/25 Tadalafil (Cialis) 5 Mg Tab, 5 MG PO BID, TAB 02/01/25 Current Medications Current Medications Medications (Trade) Dose Ordered Sig/Gadiel Route PRN Reason Start Time Stop Time Status Last Admin Sodium Chloride (Saline Lock Ns) 10 ml Q8HR IV 02/01/25 06:00 02/01/25 13:13 Acetaminophen/ Hydrocodone Bitart ([place] 5/325MG Tab) 1 tab Q4HP PRN PO MODERATE PAIN (4-6 PAIN SCALE) 02/01/25 02:45 Ondansetron HCl (Zofran) 4 mg Q4HP PRN IV NAUSEA / VOMITING 02/01/25 02:45 Docusate Sodium (Colace Capsule) 100 mg BIDPRN PRN PO FOR CONSTIPATION 02/01/25 02:45 Acetaminophen (Tylenol Tablet) 650 mg Q6HP PRN PO PAIN SCALE 1-3 OR TEMP>100.4 02/01/25 02:45 Nitroglycerin (Ntrostat Sublingual) 0.4 mg Q5MINP PRN SL FOR CHEST PAIN 02/01/25 02:45 Morphine Sulfate 2 mg Q30M PRN IV FOR CHEST PAIN 02/01/25 02:45 Sodium Chloride 1,000 ml @ 125 mls/hr Q8H IV 02/01/25 08:45 02/01/25 11:24 Pantoprazole Sodium (Protonix) 40 mg BID IV 02/01/25 10:10 02/01/25 12:35 DC 02/01/25 11:22 Ceftriaxone Sodium 50 ml @ 100 mls/hr DAILY@09 IV 02/01/25 10:00 02/01/25 12:35 DC Metronidazole 100 ml @ 100 mls/hr Q8HR IV 02/01/25 10:00 02/01/25 12:35 DC 02/01/25 11:22 Pantoprazole Sodium (Protonix) 40 mg DAILY IV 02/02/25 10:00 Hydralazine HCl (Apresoline Injection) 10 mg Q6HP PRN IV SBP>150 02/01/25 15:45 UNV Review of Systems Review of systems negative other than HPI Vital Signs Vital Signs Date Time Temp Pulse Resp B/P (MAP) Pulse Ox O2 Delivery O2 Flow Rate FiO2 02/01/25 17:00 98.0 65 17 116/84 (95) 99 98.0 02/01/25 08:44 Room Air* 0 21 Physical Exam General: Alert and oriented x4 HEENT: NC/AT EOMI PERRLA O/P clear Heart: Regular rate and rhythm Abdomen: Soft, nontender nondistended normoactive bowel sounds Extremity: No clubbing cyanosis edema Neuro: Cranial nerves 2-12 grossly intact moves all four extremities Labs/Diagnostic Data Labs Test 02/01/25 15:59 02/01/25 12:20 02/01/25 09:36 02/01/25 09:35 Range/Units White Blood Count 5.7 4.4-10.8 10^3/uL Red Blood Count 3.50 L 4.5-5.90 10^6/uL Hemoglobin 10.9 L 13.5-17.5 g/dL Hematocrit 31.3 L 41.0-53.0 % Mean Corpuscular Volume 89.5 80.0-100.0 fL Mean Corpuscular Hemoglobin 31.1 28.0-32.0 pg Mean Corpuscular Hemoglobin Concent 34.7 32.0-36.0 g/dL Red Cell Distribution Width 12.6 11.8-14.3 % Platelet Count 227 140-450 10^3/uL Mean Platelet Volume 6.7 L 6.9-10.8 fL Neutrophils (%) (Auto) 72.0 37.0-80.0 % Lymphocytes (%) (Auto) 17.0 10.0-50.0 % Monocytes (%) (Auto) 8.0 0.0-12.0 % Eosinophils (%) (Auto) 2.1 0.0-7.0 % Basophils (%) (Auto) 0.9 0.0-2.0 % Neutrophils # (Auto) 4.1 1.6-8.6 10 ^3/uL Lymphocytes # (Auto) 1.0 0.4-5.4 10 ^3/uL Monocytes # (Auto) 0.5 0-1.3 10 ^3/uL Eosinophils # (Auto) 0.1 0-0.8 10 ^3/uL Basophils # (Auto) 0 0-0.2 10 ^3/uL Nucleated Red Blood Cells 0.0 % Urine Color Light-yellow Yellow Urine Clarity Clear Clear Urine pH 5.0 5.0-9.0 Urine Specific [place] 1.022 1.001-1.035 Urine Protein Negative Negative Urine Ketones 1+ H Negative Urine Blood Negative Negative /uL Urine Nitrite Negative Negative Urine Bilirubin Negative Negative Urine Urobilinogen Normal Negative mg/dL Urine Leukocyte Esterase Negative Negative /uL Urine RBC None seen 0 - 3 /hpf Urine Microscopic WBC 1 0-3 /HPF Urine Squamous Epithelial Cells None seen <5 /hpf Urine Bacteria None seen None Seen /hpf Urine Glucose Normal Normal mg/dL Urine Opiates Screen Neg NEGATIVE Urine Fentanyl Screen Neg NEGATIVE Urine Barbiturates Screen Neg NEGATIVE Urine Phencyclidine Screen Neg NEGATIVE Urine Amphetamines Screen Neg NEGATIVE Urine Benzodiazepines Screen Neg NEGATIVE Urine Cocaine Screen Neg NEGATIVE Urine Cannabinoids Screen Neg NEGATIVE Hemoglobin A1c 5.3 <5.7 % A1C Magnesium Level 2.0 1.6-2.6 mg/dL Vitamin B12 Level 460 211-911 pg/mL Vitamin D 25-Hydroxy 48.4 30.0-100 ng/mL Folic Acid 11.60 >5.38 ng/mL Ammonia < 10 L 11-32 umol/L Thyroid Stimulating Hormone (TSH) 1.17 0.55-4.78 uIU/mL Test 02/01/25 03:57 01/31/25 20:06 Range/Units Sodium Level 141 136-145 mmol/L Potassium Level 4.1 3.5-5.1 mmol/L Chloride Level 108 H 98-107 mmol/L Carbon Dioxide Level 27 20-31 mmol/L Anion Gap 6 5-15 Blood Urea Nitrogen 12 9-23 mg/dL Creatinine 0.77 0.700-1.30 mg/dL Glomerular Filtration Rate Calc 101 >90 mL/min BUN/Creatinine Ratio 15.6 10.0-20.0 Serum Glucose 77 74-106 mg/dL Calcium Level 8.6 L 8.7-10.4 mg/dL Total Bilirubin 0.9 0.2-1.0 mg/dL Aspartate Amino Transferase (AST) 23 13-40 U/L Alanine Aminotransferase (ALT) 28 7-40 U/L Alkaline Phosphatase 62 46-116 U/L Total Protein 5.6 L 5.7-8.2 g/dL Albumin 3.6 3.2-4.8 g/dL Prothrombin Time 10.8 9.3-11.8 sec Prothrombin Time INR 1.02 0.9-1.15 Activated Partial Thromboplast Time 25.9 24.5-34.5 SEC Lipase 28 12-53 U/L Assessment 1. GI bleed 2. Suspected diverticular bleed 3. History of hemorrhoids Differential diagnosis includes malignancy versus AVM versus diverticular versus hemorrhoidal bleed versus other Problems(with codes): (1) Lower GI bleed (2) Generalized weakness Plan/Recommendation 1. Follow H&H 2. Transfuse as necessary 3. Continue with antibiotics 4. Consider colonoscopy if the patient does not stop bleeding otherwise patient can follow up as an outpatient to have a colonoscopy with his GI doctor 5. Avoid aspirin NSAIDs and anticoagulants 6. Clear liquid diet Plan discussed with: Patient DERIAN NELSON MD Feb 01, 2025 18:35
[2025-02-01] MEDS: ACETAMINOPHEN 325 MG TAB PO PRN (20:25)
[2025-02-02 01:00] VITALS: BP 121/74; PULSE 60; RESP 16; TEMP 98; O2SAT 94
[2025-02-02 06:13] LABS: Hematocrit 29.0 % (41.0-53.0); Hemoglobin 10.1 g/dL (13.5-17.5); Mean Corpuscular Hemoglobin 30.8 pg (28.0-32.0); Mean Corpuscular Volume 88.5 fL (80.0-100.0); Nucleated Red Blood Cells % 0.0 %
[2025-02-02 06:28] LABS: Alanine Aminotransferase 25 U/L (7-40); Albumin 3.3 g/dL (3.2-4.8); Alkaline Phosphatase 57 U/L (46-116); Anion Gap 7 (5-15); BUN/Creatinine Ratio 10.0 (10.0-20.0); Carbon Dioxide 26 mmol/L (20-31); Glucose 87 mg/dL (74-106); Potassium 4.4 mmol/L (3.5-5.1); Sodium 142 mmol/L (136-145)
[2025-02-02 06:29] LABS: Bilirubin, Total 0.8 mg/dL (0.2-1.0)
[2025-02-02 06:47] LABS: Blood Urea Nitrogen 8 mg/dL (9-23); Calcium 8.6 mg/dL (8.7-10.4); Chloride 109 mmol/L (98-107); Total Protein 5.3 g/dL (5.7-8.2)
[2025-02-02 08:00] VITALS: PULSE 72; RESP 17
[2025-02-02 09:00] VITALS: BP 126/73; PULSE 72; RESP 17; TEMP 97.8; O2SAT 96
[2025-02-02] MEDS: PANTOPRAZOLE 40 MG/10 ML VIAL INJ IV SCH (09:53)
[2025-02-02] MEDS ORDERED: ATOR40TA52 PO (10:29)
[2025-02-02] MEDS ORDERED: AMLO1TAB23 PO (10:29)
[2025-02-02] MEDS ORDERED: METO25TA93 PO (10:29)
[2025-02-02 12:52] VITALS: BP 122/72; PULSE 69; RESP 17; TEMP 98.1; O2SAT 96
[2025-02-02] MEDS: GOLYTELY 4L KIT PO ONE (15:35)
--- NOTE | 2025-02-02 15:36 | PRN ---
Misceleneous Note Note Note February 02, 2025 Subjective: Patient has minimal bleeding. Patient denies abdominal pain Current Medications Medications (Trade) Dose Ordered Sig/Gadiel Route Start Time Stop Time Status Last Admin Dose Admin Sodium Chloride (Saline Lock Ns) 10 ml Q8HR IV 02/01/25 06:00 02/02/25 14:00 10 ML Acetaminophen/ Hydrocodone Bitart ([place] 5/325MG Tab) 1 tab Q4HP PRN PO 02/01/25 02:45 Ondansetron HCl (Zofran) 4 mg Q4HP PRN IV 02/01/25 02:45 Docusate Sodium (Colace Capsule) 100 mg BIDPRN PRN PO 02/01/25 02:45 Acetaminophen (Tylenol Tablet) 650 mg Q6HP PRN PO 02/01/25 02:45 02/01/25 20:25 650 MG Nitroglycerin (Ntrostat Sublingual) 0.4 mg Q5MINP PRN SL 02/01/25 02:45 Morphine Sulfate 2 mg Q30M PRN IV 02/01/25 02:45 Sodium Chloride 1,000 ml @ 125 mls/hr Q8H IV 02/01/25 08:45 02/02/25 09:10 125 MLS/HR Pantoprazole Sodium (Protonix) 40 mg DAILY IV 02/02/25 10:00 02/02/25 09:53 40 MG Hydralazine HCl (Apresoline Injection) 10 mg Q6HP PRN IV 02/01/25 15:45 Vital Signs Date Time Temp Pulse Resp B/P (MAP) Pulse Ox O2 Delivery O2 Flow Rate FiO2 02/02/25 12:52 98.1 69 17 122/72 (89) 96 98.1 02/02/25 08:00 Room Air* 0 21 Physical exam Alert and oriented NC/AT EOMI PERRLA O/P clear Regular rate and rhythm Soft nondistended nontender No clubbing cyanosis or edema Impression: 1. GI bleed Diverticular disease versus hemorrhoids versus other Recommendations: 1. Clear liquid diet 2. NPO after midnight 3. Colonoscopy tomorrow 4. Risks benefits and alternatives were discussed with the patient DERIAN NELSON MD Feb 02, 2025 15:36
--- NOTE | 2025-02-02 16:33 | DVHPNRES ---
Progress Note Date Seen: Feb 02, 2025 Resident Creating Document: LEONOR LOVE RESIDENT Medical Necessity Reason Pt with a Central, PICC or Fol: No Subjective Review of Systems Patient is 64 years old male with a past medical history of hypertension,CAD and hemorrhoids who came with the complaint of per rectal bleeding. As per patient, he started having per rectal bleeding since yesterday morning and had bleeding per rectum every time he had bowel movement. Patient reported he had almost 10 bowel movements in the last 24 hours that were bloody. Patient complained of mild abdominal pain, 5 out 2 6, crampy in nature, intermittent. Patient denied any nausea, vomiting, fever, chest pain no shortness of breath, acute joint redness or swelling. Initial lab workup revealed lipase with a normal limit, AST/ALT/alkaline phosphatase within normal limit. INR 1.02. CT abdomen pelvis-bilateral renal cyst. Patient went to [facility] before coming to [facility] [place]. PMH-hypertension PSH- nasal surgery Allergy- penicillin Family history-mom had carcinoma of the breast, dad had heart disease. Personal History/ Social History- Cardiovascular- deny acute chest pain or shortness of breath or cough or palpitation Respiratory denies cough or short of breath or wheezing Gastrointestinal- denies any rectal bleeding, nausea or vomiting Musculoskeletal-denies acute joint swelling or tenderness or redness Neurological- denies acute dysarthria, dysphagia, change in vision Psychiatry- denies depression or SI or HI Skin- denies acute rash or purpura 02/01-Patient is seen today at bedside, labs and chart reviewed. Patient reported ongoing bleeding per rectum but less than before. CT abdomen pelvis-bilateral renal cyst. Pending gastroenterology consult. Patient NPO. 02/02- The patient was seen at bedside today. Patient mentions that the bleeding has reduced in amount since admission. Hemoglobin has dropped from 13.5 on admission to 10.1 today. GI saw the patient recommended starting on clear liquid diet and keeping NPO after midnight for colonoscopy tomorrow. We resumed his home medications metoprolol, amlodipine and Lipitor. Aspirin was held for the procedure tomorrow. Objective vital signs Vital Sign Date Time Temp Pulse Resp B/P (MAP) Pulse Ox O2 Delivery O2 Flow Rate FiO2 02/02/25 12:52 98.1 69 17 122/72 (89) 96 98.1 02/02/25 08:00 Room Air* 0 21 Total Intake and Output 02/01/25 02/01/25 02/02/25 15:00 23:00 07:00 Intake Total 350 ml 1190 ml Balance 350 ml 1190 ml medications Current Medications Medications Dose Ordered Sig/Gadiel Route Start Time Stop Time Status Last Admin Dose Admin Sodium Chloride 10 ml Q8HR IV 02/01/25 06:00 02/02/25 14:00 10 ML Acetaminophen/ Hydrocodone Bitart 1 tab Q4HP PRN PO 02/01/25 02:45 Ondansetron HCl 4 mg Q4HP PRN IV 02/01/25 02:45 Docusate Sodium 100 mg BIDPRN PRN PO 02/01/25 02:45 Acetaminophen 650 mg Q6HP PRN PO 02/01/25 02:45 02/01/25 20:25 650 MG Nitroglycerin 0.4 mg Q5MINP PRN SL 02/01/25 02:45 Morphine Sulfate 2 mg Q30M PRN IV 02/01/25 02:45 Sodium Chloride 1,000 ml @ 125 mls/hr Q8H IV 02/01/25 08:45 02/02/25 09:10 125 MLS/HR Pantoprazole Sodium 40 mg DAILY IV 02/02/25 10:00 02/02/25 09:53 40 MG Hydralazine HCl 10 mg Q6HP PRN IV 02/01/25 15:45 Examination General examination- awake, alert, oriented HEENT- PEERLA, no acute nasal discharge Cardiovascular- S1-S2 audible, rate and rhythm regular, no murmur Respiratory- clear to auscultation bilaterally, no wheeze or rhonchi Gastrointestinal-nontender, bowel sound+. Nondistended Musculoskeletal-no acute joint swelling or tenderness or redness Lower extremity- no leg edema Neurological- cranial nerves intact, no acute dysarthria or dysphagia Psychiatry- denies depression or SI Skin- no acute rash or purpura laboratory and microbiology Laboratory Tests 02/02/25 05:26 Test 02/02/25 05:26 Range/Units Serum Glucose 87 74-106 mg/dL Labs and/or images reviewed: Labs reviewed by me, Image(s) reviewed by me Problem List/Assessment/Plan Problem List/Assessment/Plan # Bleeding per rectum, rule out diverticulitis/angiodysplasia/carcinoma of the colon/rectum # Lower GI bleed # Bloody diarrhea -CT abdominal pelvis-bilateral renal cyst, negative for diverticulitis -gastroenterology consulted- asked to continue on clear liquid diet and NPO after midnight, scheduled for colonoscopy tomorrow -continue pantoprazole IV as prescribed -ordered stool studies # Hypertension, controlled -hydralazine q.6h PRN -resumed home medications amlodipine and metoprolol # Hyperlipidemia -atorvastatin as prescribed # History of CAD, s/p PTCA x3 with drug-eluting stent -aspirin on hold for the procedure # Benign prostatic hyperplasia -resume prostate supplements patient was taking at home Goals of care discussed with the patient for 20 minutes; full PUD prophylaxis: Pantoprazole DVT prophylaxis: SCDs in the setting of GI bleed Plan discussed with Dr. Evans Plan discussed with: Patient, Other (Nurse) Addendum Addendum Addendum I was physically present for the fermin portions of the service provided to patient by THE RESIDENT. I have reviewed the documentation, discussed the case with resident and agree with the resident's documentation except as noted. Also the patient's clinical case was discussed with the patient's nurse. This medical document was created using an electronic medical record system with computerized dictation system. Although this document has been carefully reviewed, there might still be some phonetic and typographical errors. These areas are purely typographical due to imperfections of the software programs, and do not reflect any compromise in the patient's medical care. Late signature. Date of Service: Feb 02, 2025 Billing Provider: LAYLA EVANS MD Common Visit Codes: [id number] INP/OBS CARE(HIGH) Secondary Visit Codes: [id number] CARE PLAN 30 MINUTES (20 minutes) LEONOR LOVE RESIDENT Feb 02, 2025 16:33 KAR FIGUEROA RESIDENT Feb 02, 2025 16:51 LAYLA EVANS MD Feb 04, 2025 04:23
[2025-02-02 17:00] VITALS: BP 122/75; PULSE 64; RESP 17; TEMP 98; O2SAT 98
[2025-02-02 18:36] LABS: Hematocrit 28.2 % (41.0-53.0); Hemoglobin 9.7 g/dL (13.5-17.5); Mean Corpuscular Hemoglobin 30.8 pg (28.0-32.0); Mean Corpuscular Volume 89.2 fL (80.0-100.0); Nucleated Red Blood Cells % 0.1 %
[2025-02-02 20:48] VITALS: BP 111/76; PULSE 62; RESP 16; TEMP 98; O2SAT 98
--- NOTE | 2025-02-02 21:02 | ECG ---
[facility] Test Date: 2025-02-02 Test Time: 20:54:28 Pat Name: ANGELA VALADEZ Department: Respiratoy Room: 0240 A Gender: M Control Tower Operator: JESSICA : 1960 Requested By: STUART LOVE Order Number: [id number] Reading MD: Matthew Grove Measurements Intervals [place] Rate: 62 P: 14 AL: 218 QRS: 7 QRSD: 98 T: 41 QT: 410 QTc: 417 Interpretive Statements Sinus rhythm Borderline prolonged AL interval Left ventricular hypertrophy Baseline wander in lead(s) V2 Electronically Signed On 02-04-2025 10:13:43 PDT by Matthew Grove Please click the below link to view image of tracing.
[2025-02-03] VITALS (8 sets, daily range): BP systolic 104–118; BP diastolic 65–84; PULSE 61–72; RESP 16–18; TEMP 97.8–98.1; O2SAT 94–99
--- NOTE | 2025-02-03 04:46 | DVH ---
CHEST RADIOGRAPH Indication: preop Technique: Single frontal view of the chest was obtained COMPARISON: None FINDINGS: Lines and Tubes: None Lungs: Clear Pleura: No effusion. No pneumothorax. Cardiomediastinal contours: Unremarkable Bones: Unremarkable IMPRESSION: 1. No acute disease.
[2025-02-03 05:56] LABS: Potassium 3.8 mmol/L (3.5-5.1); Sodium 143 mmol/L (136-145)
[2025-02-03 05:57] LABS: Anion Gap 6 (5-15); Carbon Dioxide 28 mmol/L (20-31)
[2025-02-03] MEDS: MAGNESIUM CITRATE SOLUTION 300 ML BTL PO ONE (05:57)
[2025-02-03 06:03] LABS: BUN/Creatinine Ratio 6.2 (10.0-20.0); Glucose 95 mg/dL (74-106)
[2025-02-03 06:06] LABS: Hematocrit 24.7 % (41.0-53.0); Hemoglobin 8.7 g/dL (13.5-17.5); Mean Corpuscular Hemoglobin 31.4 pg (28.0-32.0); Mean Corpuscular Volume 88.9 fL (80.0-100.0); Nucleated Red Blood Cells % 0.2 %
[2025-02-03 06:08] LABS: Blood Urea Nitrogen 5 mg/dL (9-23); Calcium 8.5 mg/dL (8.7-10.4); Chloride 109 mmol/L (98-107)
[2025-02-03 06:15] LABS: INR 1.09 (0.9-1.15); Partial Thromboplastin Time 24.4 SEC (24.5-34.5); Prothrombin Time 11.5 sec (9.3-11.8)
--- NOTE | 2025-02-03 10:00 | DVHPN2 ---
Subjective Continues with the abdominal pain and rectal bleed Reviewed: Care Plan, H&P, Labs, Medications, Previous Orders, Radiology, Other (Consultation) Changes from previous H/P or p: No Changes Objective Vitals Vital Signs Date Time Temp Pulse Resp B/P (MAP) Pulse Ox O2 Delivery O2 Flow Rate FiO2 02/03/25 09:00 97.9 67 16 115/73 (87) 99 97.9 02/02/25 20:05 Room Air* 0 21 Intake/Output Intake and Output 02/03/25 07:00 Intake Total 750 ml Balance 750 ml Intake Oral 750 ml # Voids 13 # Bowel Movements 11 General Appearance: Alert, Oriented X3, Cooperative, No acute distress HEENT: Atraumatic Lungs: Clear to auscultation, Normal air movement Cardiovascular: Regular rate, Normal S1, Normal S2 Abdomen: Normal bowel sounds, Soft, Other (Mild diffuse tenderness) Rectal: Deferred Extremities: No edema Neuro: Normal speech, Cranial nerves 3-12 NL Psych/Mental Status: Mental status NL, Mood NL Medications Current Medications Medications Dose Ordered Sig/Gadiel Route Start Time Stop Time Status Last Admin Dose Admin Sodium Chloride 10 ml Q8HR IV 02/01/25 06:00 02/03/25 05:57 10 ML Acetaminophen/ Hydrocodone Bitart 1 tab Q4HP PRN PO 02/01/25 02:45 Ondansetron HCl 4 mg Q4HP PRN IV 02/01/25 02:45 Docusate Sodium 100 mg BIDPRN PRN PO 02/01/25 02:45 Acetaminophen 650 mg Q6HP PRN PO 02/01/25 02:45 02/01/25 20:25 650 MG Nitroglycerin 0.4 mg Q5MINP PRN SL 02/01/25 02:45 Morphine Sulfate 2 mg Q30M PRN IV 02/01/25 02:45 Sodium Chloride 1,000 ml @ 125 mls/hr Q8H IV 02/01/25 08:45 02/03/25 06:07 125 MLS/HR Pantoprazole Sodium 40 mg DAILY IV 02/02/25 10:00 02/02/25 09:53 40 MG Hydralazine HCl 10 mg Q6HP PRN IV 02/01/25 15:45 Laboratory Results Laboratory Tests 02/03/25 05:33 Chemistry Test 02/03/25 05:33 Calcium Level 8.5 mg/dL (8.7-10.4) L Coagulation Test 02/03/25 05:33 Prothrombin Time 11.5 sec (9.3-11.8) Prothrombin Time INR 1.09 (0.9-1.15) Activated Partial Thromboplast Time 24.4 SEC (24.5-34.5) L Urinalysis Test 02/01/25 12:20 Urine Color Light-yellow (Yellow) Urine Clarity Clear (Clear) Urine pH 5.0 (5.0-9.0) Urine Specific [place] 1.022 (1.001-1.035) Urine Protein Negative (Negative) Urine Ketones 1+ (Negative) H Urine Blood Negative /uL (Negative) Urine Nitrite Negative (Negative) Urine Bilirubin Negative (Negative) Urine Urobilinogen Normal mg/dL (Negative) Urine Leukocyte Esterase Negative /uL (Negative) Urine RBC None seen /hpf (0 - 3) Urine Microscopic WBC 1 /HPF (0-3) Urine Squamous Epithelial Cells None seen /hpf (<5) Urine Bacteria None seen /hpf (None Seen) Urine Glucose Normal mg/dL (Normal) Labs and/or images reviewed: Labs reviewed by me, Image(s) reviewed by me Assessment/Plan Assessment/Plan Covering: Rectal bleed Acute blood loss anemia Abdominal pain; unclear etiology Essential hypertension Dyslipidemia CAD status post stenting; asymptomatic BPH; no active issue at this time Bilateral renal cysts; normal renal function; asymptomatic Obesity Hemoglobin continues to drop Reviewed lab work and available imaging studies Continue holding aspirin for now Continue statin Continue antihypertensive medication and adjust according to blood pressure monitoring GI is following: Unfortunately the scope machine stopped working so EGD/colonoscopy were not done; possible EGD/colonoscopy tomorrow Counseled the patient on the importance of adopting healthy lifestyle with diet and exercise in order to lose weight Continue pain management as indicated Continue monitoring Late Entry. This medical document was created using an electronic medical record system with computerized dictation system. Although this document has been carefully reviewed, there might still be some phonetic and typographical errors. These areas are purely typographical due to imperfections of the software programs, and do not reflect any compromise in the patient's medical care. Plan discussed with: Patient, Other (Nurse) Date of Service: Feb 03, 2025 Billing Provider: LAYLA EVANS MD Common Visit Codes: [id number] INP/OBS CARE(HIGH) LAYLA EVANS MD Feb 03, 2025 10:00
--- NOTE | 2025-02-03 11:16 | DVHPN2 ---
Progress Note - Dictate Date Seen: Feb 03, 2025 Medical Necessity Reason Pt with a Central, PICC or Fol: No Subjective Patient with GI bleeding rectal bleeding scheduled for EGD and colon while bowel prep there was some bleeding rectal bleeding small amounts no hematemesis vital signs Vital Sign Date Time Temp Pulse Resp B/P (MAP) Pulse Ox O2 Delivery O2 Flow Rate FiO2 02/03/25 09:00 97.9 67 16 115/73 (87) 99 97.9 02/02/25 20:05 Room Air* 0 21 Total Intake and Output 02/02/25 02/02/25 02/03/25 15:00 23:00 07:00 Intake Total 750 ml 0 ml Balance 750 ml 0 ml medications Current Medications Medications Dose Ordered Sig/Gadiel Route Start Time Stop Time Status Last Admin Dose Admin Sodium Chloride 10 ml Q8HR IV 02/01/25 06:00 02/03/25 05:57 10 ML Acetaminophen/ Hydrocodone Bitart 1 tab Q4HP PRN PO 02/01/25 02:45 Ondansetron HCl 4 mg Q4HP PRN IV 02/01/25 02:45 Docusate Sodium 100 mg BIDPRN PRN PO 02/01/25 02:45 Acetaminophen 650 mg Q6HP PRN PO 02/01/25 02:45 02/01/25 20:25 650 MG Nitroglycerin 0.4 mg Q5MINP PRN SL 02/01/25 02:45 Morphine Sulfate 2 mg Q30M PRN IV 02/01/25 02:45 Sodium Chloride 1,000 ml @ 125 mls/hr Q8H IV 02/01/25 08:45 02/03/25 06:07 125 MLS/HR Pantoprazole Sodium 40 mg DAILY IV 02/02/25 10:00 02/03/25 11:11 40 MG Hydralazine HCl 10 mg Q6HP PRN IV 02/01/25 15:45 objective Abdomen is soft nontender no masses Vitals stable Patient was scheduled for the EGD and colon but unfortunately the admission system failed and there was no replacement system available at this time so we have to rearrange and reschedule some time soon as the admission is fixed so the procedure EGD and colon has been canceled for now To keep the patient on clear liquids and try to rearrange for tomorrow if possible since system starts and repaired laboratory and microbiology Laboratory Tests 02/03/25 05:33 Test 02/03/25 05:33 Range/Units Serum Glucose 95 74-106 mg/dL Assessment/Plan Patient's GI bleeding scheduled for EGD and colon The bowel prep and was brought to the OR but unfortunately the whole system failed including the endoscopic system and nothing is working and hence the procedure had to be canceled We will recommend to keep on clear liquids and rearranged for the tomorrow if possible or later today if possible after the system is brought repaired by the med or other tucks In the meantime we will start her on clear liquids and watch for bleeding and follow the hemoglobin Thank you Dr. Holcomb Plan discussed with: Patient STUART HOLCOMB MD Feb 03, 2025 11:16
[2025-02-04 01:12] VITALS: BP 120/78; PULSE 63; RESP 16; TEMP 98.1; O2SAT 98
[2025-02-04 05:08] VITALS: BP 110/72; PULSE 62; RESP 16; TEMP 97.8; O2SAT 96
[2025-02-04 07:50] LABS: Hematocrit 25.7 % (41.0-53.0); Hemoglobin 9.3 g/dL (13.5-17.5); Mean Corpuscular Hemoglobin 32.0 pg (28.0-32.0); Mean Corpuscular Volume 88.5 fL (80.0-100.0); Nucleated Red Blood Cells % 0.0 %
[2025-02-04 07:58] LABS: Anion Gap 7 (5-15); Calcium 8.8 mg/dL (8.7-10.4); Carbon Dioxide 28 mmol/L (20-31); Potassium 3.9 mmol/L (3.5-5.1); Sodium 143 mmol/L (136-145)
[2025-02-04 08:03] LABS: Glucose 83 mg/dL (74-106)
[2025-02-04 08:08] LABS: BUN/Creatinine Ratio 6.3 (10.0-20.0); Blood Urea Nitrogen < 5 mg/dL (9-23); Chloride 108 mmol/L (98-107)
[2025-02-04 09:00] VITALS: BP 119/68; PULSE 61; RESP 18; TEMP 98.6; O2SAT 97
[2025-02-04 13:00] VITALS: BP 140/71; PULSE 67; RESP 18; TEMP 98; O2SAT 97
--- NOTE | 2025-02-04 15:39 | DVHDSRES ---
Discharge Summary Date of Admission Resident Creating Document: LEONOR LOVE RESIDENT Feb 01, 2025 at 02:36 Date of Discharge: Feb 04, 2025 Admitting Diagnosis Acute per rectal bleeding Labs/Diagnostic Data: Laboratory Results Test 02/04/25 06:16 02/03/25 05:33 02/02/25 09:45 02/02/25 05:26 White Blood Count 4.3 10^3/uL (4.4-10.8) Red Blood Count 2.91 10^6/uL (4.5-5.90) Hemoglobin 9.3 g/dL (13.5-17.5) Hematocrit 25.7 % (41.0-53.0) Mean Corpuscular Volume 88.5 fL (80.0-100.0) Mean Corpuscular Hemoglobin 32.0 pg (28.0-32.0) Mean Corpuscular Hemoglobin Concent 36.2 g/dL (32.0-36.0) Red Cell Distribution Width 12.7 % (11.8-14.3) Platelet Count 236 10^3/uL (140-450) Mean Platelet Volume 7.2 fL (6.9-10.8) Neutrophils (%) (Auto) 64.4 % (37.0-80.0) Lymphocytes (%) (Auto) 21.5 % (10.0-50.0) Monocytes (%) (Auto) 7.8 % (0.0-12.0) Eosinophils (%) (Auto) 5.2 % (0.0-7.0) Basophils (%) (Auto) 1.1 % (0.0-2.0) Neutrophils # (Auto) 2.8 10 ^3/uL (1.6-8.6) Lymphocytes # (Auto) 0.9 10 ^3/uL (0.4-5.4) Monocytes # (Auto) 0.3 10 ^3/uL (0-1.3) Eosinophils # (Auto) 0.2 10 ^3/uL (0-0.8) Basophils # (Auto) 0 10 ^3/uL (0-0.2) Nucleated Red Blood Cells 0.0 % Sodium Level 143 mmol/L (136-145) Potassium Level 3.9 mmol/L (3.5-5.1) Chloride Level 108 mmol/L (98-107) Carbon Dioxide Level 28 mmol/L (20-31) Anion Gap 7 (5-15) Blood Urea Nitrogen < 5 mg/dL (9-23) Creatinine 0.79 mg/dL (0.700-1.30) Glomerular Filtration Rate Calc 100 mL/min (>90) BUN/Creatinine Ratio 6.3 (10.0-20.0) Serum Glucose 83 mg/dL (74-106) Calcium Level 8.8 mg/dL (8.7-10.4) Prothrombin Time 11.5 sec (9.3-11.8) Prothrombin Time INR 1.09 (0.9-1.15) Activated Partial Thromboplast Time 24.4 SEC (24.5-34.5) Stool Occult Blood Sample #3 Positive (Negative) Stool for White Cells None seen Total Bilirubin 0.8 mg/dL (0.2-1.0) Aspartate Amino Transferase (AST) 18 U/L (13-40) Alanine Aminotransferase (ALT) 25 U/L (7-40) Alkaline Phosphatase 57 U/L (46-116) Total Protein 5.3 g/dL (5.7-8.2) Albumin 3.3 g/dL (3.2-4.8) Test 02/01/25 12:20 02/01/25 09:36 02/01/25 09:35 01/31/25 20:06 Urine Color Light-yellow (Yellow) Urine Clarity Clear (Clear) Urine pH 5.0 (5.0-9.0) Urine Specific [place]ler 1.022 (1.001-1.035) Urine Protein Negative (Negative) Urine Ketones 1+ (Negative) Urine Blood Negative /uL (Negative) Urine Nitrite Negative (Negative) Urine Bilirubin Negative (Negative) Urine Urobilinogen Normal mg/dL (Negative) Urine Leukocyte Esterase Negative /uL (Negative) Urine RBC None seen /hpf (0 - 3) Urine Microscopic WBC 1 /HPF (0-3) Urine Squamous Epithelial Cells None seen /hpf (<5) Urine Bacteria None seen /hpf (None Seen) Urine Glucose Normal mg/dL (Normal) Urine Opiates Screen Neg (NEGATIVE) Urine Fentanyl Screen Neg (NEGATIVE) Urine Barbiturates Screen Neg (NEGATIVE) Urine Phencyclidine Screen Neg (NEGATIVE) Urine Amphetamines Screen Neg (NEGATIVE) Urine Benzodiazepines Screen Neg (NEGATIVE) Urine Cocaine Screen Neg (NEGATIVE) Urine Cannabinoids Screen Neg (NEGATIVE) Hemoglobin A1c 5.3 % A1C (<5.7) Magnesium Level 2.0 mg/dL (1.6-2.6) Vitamin B12 Level 460 pg/mL (211-911) Vitamin D 25-Hydroxy 48.4 ng/mL (30.0-100) Folic Acid 11.60 ng/mL (>5.38) Ammonia < 10 umol/L (11-32) Thyroid Stimulating Hormone (TSH) 1.17 uIU/mL (0.55-4.78) Lipase 28 U/L (12-53) Other Laboratory Tests 02/04/25 06:16 Brief Hx & Hospital Course: Patient is 64 years old male with a past medical history hypertension, CAD,hemorrhoids came with a complaint of per rectal bleeding. As per patient he started having per rectal bleeding since yesterday morning and had bleeding per rectum every time he had bowel movement. Patient reported he had almost 10 bowel movement in the last 24 hours that was bloody. Patient complained of mild abdominal pain, 5 out 2 6, crampy in nature, intermittent. Patient denied any nausea, vomiting, fever, chest pain no shortness of breath, acute joint redness or swelling. Initial lab workup revealed lipase with a normal limit, AST/ALT/alkaline phosphatase within normal limit. INR 1.02. CT abdomen pelvis- bilateral renal cyst. Patient went to [facility] before coming to [facility]. Hospital course-during hospitalization patient was treated conservatively. Patient was seen by [facility] and recommended for colonoscopy for further evaluation and care. Patient has a scheduled colonoscopy on 02/03/2025 but procedure could not be done because of the whole system failed including the endoscopic system and nothing is workin. Patient's hemoglobin dropping down and patients with on going bleeding per rectum. Dr. Holcomb, [facility] recommended for transfer the patient to [facility] for possible colonoscopy/EGD. Patient was hemodynamically stable on discharge. Assessment #Bleeding per rectum rule out diverticulitis/angiodysplasia/carcinoma of the colon/rectum # bloody diarrhea # hypertension # hyperlipidemia # coronary artery disease, status post PTCA # acute blood loss anemia Plan # transfer the patient to [facility] for possible colonoscopy/EGD -continue current management as above Operations or Procedures [facility] [id number] [place] [id number] Ph: [phone] DIAGNOSTIC IMAGING Diagnostic Imaging Report : [id number] Signed PATIENT: ANGEAL VALADEZ ACCT: [id number] UNIT: [id number] : 1960 LOC: ER ROOM / BED: / AGE / SEX: 64 / M ADM STATUS: REG ER SERVICE 46 ORDERING PHYSICIAN: KATH SHULTZ MD PROCEDURE(s): ABPL - CT AB PEL WO CON-NO ORAL OR IV REASON: abd pain, GI bleed ORDER NUMBER(s): [id number], ACCESSION NUMBER(s): [id number] Exam: CT CT AB PEL WO CON-NO ORAL OR IV History: abd pain, GI bleed Comparison Study: None TECHNIQUE: Multidetector CT of the abdomen was performed from lung bases to pubic symphysis. Imaging was performed without IV contrast. Axial, coronal and sagittal multiplanar reformats were obtained from the axial data set by the technologist. Radiation Dose Information: CT Dose: CTDI volume is 16.9 mGy. Dose-length product is 1025.6 mGy*cm FINDINGS: Evaluation of solid organs is limited due to lack of intravenous contrast use. Findings: Lung Bases: No acute or significant lung base finding. Normal heart size. No pleural or pericardial effusion. Liver: The liver is normal in size. No focal lesions. Gallbladder and Biliary Tree: Unremarkable Spleen: Unremarkable Pancreas: The pancreas is grossly normal in appearance. Adrenal Glands: Unremarkable Kidneys: Bilateral renal cysts Bladder: Contrast filled bladder Bowel: The stomach is grossly normal in appearance. Small bowel and colon are normal in caliber and distribution. The appendix is not visualized; however, no secondary findings of acute appendicitis identified. Ascites: Absent Lymphadenopathy: No mesenteric, retroperitoneal or periportal lymphadenopathy. Abdominal Wall and Mesentery: Unremarkable. Vasculature: The visualized abdominal aorta is normal in size and caliber. Evaluation of abdominal and pelvic vessels is limited due to lack of intravenous contrast. Pelvic Organs: Prostate measures 5.4 by 5.2 cm and is partially calcified Musculoskeletal: No aggressive focal bony lesions, acute fractures or dislocation. Soft tissues: Unremarkable IMPRESSION: 1. Bilateral renal cysts 2. Contrast filled bladder Radiation optimization: All CT scans at this facility use at least one of these dose optimization techniques: automated exposure control mA and/or kV adjustment per patient size (includes targeted exams where dose is matched to clinical indication) or iterative reconstruction. ATED BY: JACKIE SAWANT Jr., DO DICTATED DATE/TIME: 01/31/252242 SIGNED BY: JACKIE SAWANT Jr., DO SIGNED DATE/TIME: 01/31/252242 CC: [place] [id number] Ph: [phone] DIAGNOSTIC IMAGING Diagnostic Imaging Report : [id number] Signed PATIENT: ANGELA VALADEZ ACCT: [id number] UNIT: [id number] : 1960 LOC: [facility] ROOM / BED: [facility] / A AGE / SEX: 64 / M ADM STATUS: ADM IN SERVICE 9 ORDERING PHYSICIAN: STUART HOLCOMB MD PROCEDURE(s): CXRP - CHEST PORTABLE REASON: preop ORDER NUMBER(s): [id number], ACCESSION NUMBER(s): [id number] CHEST RADIOGRAPH Indication: preop Technique: Single frontal view of the chest was obtained COMPARISON: None FINDINGS: Lines and Tubes: None Lungs: Clear Pleura: No effusion. No pneumothorax. Cardiomediastinal contours: Unremarkable Bones: Unremarkable IMPRESSION: 1. No acute disease. ATED BY: YFN CONTRERAS MD DICTATED DATE/TIME: 02/03/25442 SIGNED BY: YFN CONTRERAS MD SIGNED DATE/TIME: 02/03/25442 CC: Condition at Discharge: Stable Final Diagnosis/Problems List #acute blood loss anemia, severe anemia due to below # acute Lower GI bleed # precipitous Hb drop # bloody diarrhea # hypertension # hyperlipidemia # coronary artery disease, status post PTCA # acute blood loss anemia Discharge Disposition: Acute Care Facility Discharge Instruct/Medications Follow Up/Referral: Transferred in [facility] for possible colonoscopy/EGD Medications: Continue current management Scheduled Amlodipine Besylate (Amlodipine Besylate), 10 MG PO DAILY, (Reported) Amlodipine Besylate (Amlodipine Besylate), 1 TAB PO DAILY, (Reported) Aspirin (Aspirin 81), 81 MG OR DAILY, (Reported) Atorvastatin Calcium (Lipitor), 40 MG PO DAILY, (Reported) Atorvastatin Calcium (Atorvastatin Calcium), 1 TAB PO DAILY, (Reported) Metoprolol Succinate (Metoprolol Succinate Er), 1 TAB PO DAILY, (Reported) Tadalafil (Cialis), 5 MG PO BID, (Reported) Discharge Statement: "Patient was advised to return to the ER or call 911 if any headaches, dizziness, shortness of breath, chest pain, abdominal pain, bleeding, fevers, or worsening of medical condition. Patient was counseled about treatment plan, medications, possible side effects, patientverbalized understanding. All questions were answered to the best of my ability. This discharge took greater then 30 minutes in planning, reviewing documentation, counseling the patient, and discussing with other team members." ASSESSMENT ASSESSMENT Assessment Date of Service: Feb 04, 2025 Billing Provider: TALITA EUCEDA MD Common Visit Codes: 55888-RDC/OBS DISCH DAY >30min JALEN OTERO RESIDENT Feb 04, 2025 15:39 TALITA EUCEDA MD Feb 05, 2025 16:23
[2025-02-04 16:36] VITALS: BP 119/72; PULSE 60; RESP 18; TEMP 98; O2SAT 97
--- NOTE | 2025-02-04 20:37 | DVHPN2 ---
Progress Note - Dictate Date Seen: Feb 04, 2025 Medical Necessity Reason Pt with a Central, PICC or Fol: No Subjective Patient with GI bleeding rectal bleeding scheduled for EGD and colon but had to be canceled yesterday because of problems with GI equipments gi equipment is not fixed yet hemoglobin is still low, and getting transferred to hospital in [place] for further care GI command is not functioning here vital signs Vital Sign Date Time Temp Pulse Resp B/P (MAP) Pulse Ox O2 Delivery O2 Flow Rate FiO2 02/04/25 16:36 98.0 60 18 119/72 (88) 97 98.0 02/04/25 08:00 Room Air* 0 21 Total Intake and Output 02/03/25 02/03/25 02/04/25 15:00 23:00 07:00 Intake Total 1580 ml 450 ml Output Total 2 ml Balance 1580 ml 448 ml medications Current Medications Medications Dose Ordered Sig/Gadiel Route Start Time Stop Time Status Last Admin Dose Admin Sodium Chloride 10 ml Q8HR IV 02/01/25 06:00 02/04/25 10:04 10 ML Acetaminophen/ Hydrocodone Bitart 1 tab Q4HP PRN PO 02/01/25 02:45 Ondansetron HCl 4 mg Q4HP PRN IV 02/01/25 02:45 Docusate Sodium 100 mg BIDPRN PRN PO 02/01/25 02:45 Acetaminophen 650 mg Q6HP PRN PO 02/01/25 02:45 02/01/25 20:25 650 MG Nitroglycerin 0.4 mg Q5MINP PRN SL 02/01/25 02:45 Morphine Sulfate 2 mg Q30M PRN IV 02/01/25 02:45 Pantoprazole Sodium 40 mg DAILY IV 02/02/25 10:00 02/04/25 10:04 40 MG Hydralazine HCl 10 mg Q6HP PRN IV 02/01/25 15:45 objective Abdomen is soft nontender no masses Vitals stable Patient was scheduled for the EGD and colon but unfortunately the admission system failed and there was no replacement system available at this time so we have to rearrange and reschedule some time soon as the admission is fixed so the procedure EGD and colon has been canceled for now Since recommend a still down patient is getting transferred to [place] for further care laboratory and microbiology Laboratory Tests 02/04/25 06:16 Test 02/04/25 06:16 Range/Units Serum Glucose 83 74-106 mg/dL Assessment/Plan Patient's GI bleeding scheduled for EGD and colon The bowel prep and was brought to the OR but unfortunately the whole system failed including the endoscopic system and nothing is working and hence the procedure had to be canceled Being transferred to hospital in [place] for further care Thank you Dr. Holcomb Dietary Evaluation Review Comments: 1) Advance to cardiac diet when medically feasible 2) Encourage optimal PO intake 3) Refer to outpatient RD for weight management 4) Follow-up with gastroenterology 5) Continue to monitor I&O, labs, and skin integrity Expected Outcomes/Goals: 1) appetite and labs to improve 2) diet to advance 3) f/u in 3-5 days Plan discussed with: Patient STUART HOLCOMB MD Feb 04, 2025 20:37
== END 2025-02-04 20:20 | disposition short-term general hospital (02) | DRG 378 ==
LOC: EDBD 19:22 → ER 19:22 → OVERFLOW 02-01 02:36 → EAST 02-01 16:24
PROVIDERS: ADMIT Student in an Organized Health Care Education/Training Program; ATTEND Emergency Medicine
DX: K55.21 Angiodysplasia of colon with hemorrhage (principal); C19 Malignant neoplasm of rectosigmoid junction; D62 Acute posthemorrhagic anemia; K57.33 Diverticulitis of large intestine without perforation or abscess with bleeding; I10 Essential (primary) hypertension; E66.9 Obesity, unspecified; Z68.33 Body mass index [BMI] 33.0-33.9, adult; E78.5 Hyperlipidemia, unspecified; N40.0 Benign prostatic hyperplasia without lower urinary tract symptoms; I25.10 Atherosclerotic heart disease of native coronary artery without angina pectoris; N28.1 Cyst of kidney, acquired; R19.7 Diarrhea, unspecified; K64.9 Unspecified hemorrhoids; Z95.5 Presence of coronary angioplasty implant and graft; Z88.0 Allergy status to penicillin; Z80.1 Family history of malignant neoplasm of trachea, bronchus and lung
CPT/HCPCS: 36415; 71045; 74176; 80048; 80053; 80307; 81001; 82140; 82270; 82306; 82607; 82746; 83036; 83690; 83735; 84443; 85025; 85048; 85610; 85730; 86850; 86900; 86901; 87045; 87427; 93005; 96360; 99291; G0378; J2470; J3490